=== PATIENT | female | born 1975 | race African-American/Black ===

== ENCOUNTER 2018-04-17 08:44 | Emergency (ER) | payer OTHER ==
[~2018-04-17] VITALS: Ht 175.3 cm; Wt 111.1 kg
[~2018-04-17 08:44] MED LIST: ALBUTEROL2.5 MG/0.5 INH; HYDROCODONE-AP1 EAC6 PO; SENOKOT-S1 TA1 PO
[2018-04-17] MEDS ORDERED: MOBIC7.5 MG PO (09:45)
[2018-04-17] MEDS ORDERED: TRAMADOL 50 MG50 MG PO (09:45)
== END 2018-04-17 10:18 | disposition home or self-care (01) ==
LOC: ER 08:44
DX: M77.9 Enthesopathy, unspecified (principal); J45.909 Unspecified asthma, uncomplicated; F17.210 Nicotine dependence, cigarettes, uncomplicated; Z88.6 Allergy status to analgesic agent

== ENCOUNTER 2018-06-02 10:26 | Emergency (ER) | payer OTHER ==
[~2018-06-02] VITALS: Ht 175.3 cm; Wt 111.1 kg
[~2018-06-02 10:26] MED LIST changes: +MOBIC7.5 MG PO; +NORFLEX100 MG PO; +TRAMADOL 50 MG50 MG PO
[2018-06-02 10:29] VITALS: BP 176/97
[2018-06-02] MEDS ORDERED: NORCO 5-325 TA1 EACH PO (11:16)
[2018-06-02] MEDS ORDERED: CLEOCIN HCL150 MG PO (11:16)
== END 2018-06-02 11:23 | disposition home or self-care (01) ==
LOC: ER 10:26
DX: R22.0 Localized swelling, mass and lump, head (principal); K08.89 Other specified disorders of teeth and supporting structures; J45.909 Unspecified asthma, uncomplicated; Z88.6 Allergy status to analgesic agent

== ENCOUNTER 2018-06-03 07:41 | Emergency (ER) | payer OTHER ==
[~2018-06-03] VITALS: Ht 175.3 cm; Wt 111.1 kg
[~2018-06-03 07:41] MED LIST changes: +CLEOCIN HCL150 MG PO; +NORCO 5-325 TA1 EACH PO
[2018-06-03 09:00] VITALS: BP 128/75
== END 2018-06-03 09:00 | disposition home or self-care (01) ==
LOC: ER 07:41
DX: K04.7 Periapical abscess without sinus (principal); J45.909 Unspecified asthma, uncomplicated; F17.210 Nicotine dependence, cigarettes, uncomplicated; Z88.6 Allergy status to analgesic agent

== ENCOUNTER 2019-02-18 17:13 | Emergency (ER) | payer OTHER ==
[~2019-02-18] VITALS: Ht 175.3 cm; Wt 113.4 kg
[2019-02-18 17:36] LABS: ABSOLUTE NEUTROPHILS 2.7 thou/uL (1.4-8.2); BASOPHILS 0.6 % (0.0-2.0); EOSINOPHILS 2.1 % (0.0-3.0); HEMATOCRIT 40.4 % (37.0-47.0); HEMOGLOBIN 13.7 gm/dL (12.0-15.0); LYMPHOCYTES 47.5 % (24.0-44.0); MCH 30.2 pg (26.0-34.0); MCV 88.9 fL (80.0-100.0); MONOCYTES 8.5 % (1.0-8.0); PLATELET COUNT 174 thou/uL (150-400); POLYS 41.3 % (36.0-66.0); RBC 4.54 mil/uL (4.20-5.00); RDW 13.1 % (10.5-14.5); WBC 6.6 thou/uL (4.0-11.0)
[2019-02-18 17:47] LABS: CALCIUM 9.3 mg/dL (8.5-10.1); CREATININE 0.8 mg/dL (0.6-1.0); POTASSIUM 3.2 mmol/L (3.5-5.1)
[2019-02-18 17:50] LABS: ALBUMIN 3.7 g/dL (3.4-5.0); TOTAL BILIRUBIN 0.4 mg/dL (<0.1-1.0); TOTAL PROTEIN 7.9 g/dL (6.4-8.2)
[2019-02-18 19:19] LABS: URINE BILIRUBIN NEGATIVE (Negative); URINE BLOOD NEGATIVE (Negative); URINE CLARITY CLEAR; URINE COLOR YELLOW; URINE GLUCOSE-RANDOM* NEGATIVE (Negative); URINE KETONES NEGATIVE (Negative); URINE LEUKOCYTES NEGATIVE (Negative); URINE NITRITE NEGATIVE (Negative); URINE PROTEIN (DIPSTICK) NEGATIVE (Negative); URINE SPECIFIC GRAVITY >= 1.030 (1.005-1.035); URINE UROBILINOGEN 0.2 E.U./dl (0.2-1.0)
[2019-02-18] MEDS ORDERED: ULTRAM 50MG TAB50 MG PO (20:58)
[2019-02-18] MEDS ORDERED: NAPROSYN500 MG PO (20:58)
[2019-02-18 21:05] VITALS: BP 152/87
--- NOTE | 2019-02-19 08:17 | EKG ---
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
== END 2019-02-18 21:10 | disposition home or self-care (01) ==
LOC: ER 17:13
PROVIDERS: Emergency Medicine
DX: R09.1 Pleurisy (principal); J45.909 Unspecified asthma, uncomplicated; F17.210 Nicotine dependence, cigarettes, uncomplicated; Z88.6 Allergy status to analgesic agent

== ENCOUNTER 2019-08-19 20:51 | Emergency (ER) | payer OTHER ==
[~2019-08-19] VITALS: Ht 175.3 cm; Wt 115.7 kg
[~2019-08-19 20:51] MED LIST changes: +NAPROSYN500 MG PO; +ULTRAM 50MG TAB50 MG PO
[2019-08-19] MEDS ORDERED: NOHOMEMEDICATIONS (22:25)
[2019-08-19 23:53] VITALS: BP 146/94
[2019-08-20] MEDS ORDERED: PROAIR HFA8.5 GM INH (00:06)
[2019-08-20] MEDS ORDERED: ALBUTEROL2.5 MG/0.1 INH (00:06)
[2019-08-20] MEDS ORDERED: GUAIFEN-CODEINE10 ML PO (00:06)
== END 2019-08-20 00:10 | disposition home or self-care (01) ==
LOC: ER 20:51
DX: J06.9 Acute upper respiratory infection, unspecified (principal); J45.909 Unspecified asthma, uncomplicated; F17.210 Nicotine dependence, cigarettes, uncomplicated; Z88.8 Allergy status to other drugs, medicaments and biological substances

== ENCOUNTER 2019-11-07 07:21 | Emergency (ER) | payer OTHER ==
[~2019-11-07] VITALS: Ht 175.3 cm; Wt 115.7 kg
[~2019-11-07 07:21] MED LIST changes: +ALBUTEROL2.5 MG/0.1 INH; +GUAIFEN-CODEINE10 ML PO; +NOHOMEMEDICATIONS; +PROAIR HFA8.5 GM INH
[2019-11-07] MEDS ORDERED: VENTOLIN HFA 1818 GM INH (08:26)
[2019-11-07] MEDS ORDERED: ALBUTEROL2.5 MG/31 INH (08:26)
[2019-11-07] MEDS ORDERED: AIRDUO RESPICL1 EAC1 INH (08:33)
[2019-11-07 08:35] VITALS: BP 131/75
== END 2019-11-07 08:35 | disposition home or self-care (01) ==
LOC: ER 07:21
DX: J45.909 Unspecified asthma, uncomplicated (principal); Z76.0 Encounter for issue of repeat prescription; F12.10 Cannabis abuse, uncomplicated; E66.9 Obesity, unspecified; F17.210 Nicotine dependence, cigarettes, uncomplicated; Z79.899 Other long term (current) drug therapy; Z88.8 Allergy status to other drugs, medicaments and biological substances

== ENCOUNTER 2020-10-09 23:49 | Emergency (ER) | payer OTHER ==
[~2020-10-09] VITALS: Ht 175.3 cm; Wt 120.2 kg
[~2020-10-09 23:49] MED LIST changes: +AIRDUO RESPICL1 EAC1 INH; +ALBUTEROL2.5 MG/31 INH; +VENTOLIN HFA 1818 GM INH
[2020-10-10] MEDS ORDERED: BUDESONIDE-FO10.2 G1 INH (00:08)
[2020-10-10] MEDS ORDERED: DIAZEPAM 5 MG5 M1 PO (00:49)
[2020-10-10] MEDS ORDERED: NAPROXEN500 MG PO (00:49)
[2020-10-10 01:28] VITALS: BP 179/98
[2020-10-10] MEDS ORDERED: NORCO5 PO (02:12)
== END 2020-10-10 01:45 | disposition home or self-care (01) ==
LOC: ER 23:49
DX: M43.6 Torticollis (principal); M62.830 Muscle spasm of back; J45.909 Unspecified asthma, uncomplicated; F17.210 Nicotine dependence, cigarettes, uncomplicated; Z79.899 Other long term (current) drug therapy; Z88.8 Allergy status to other drugs, medicaments and biological substances